=== PATIENT | female | born 1935 | race Caucasian/White ===

== ENCOUNTER 2024-03-25 08:03 | Outpatient (AMB) | payer MEDICARE, BC, SELFPAY ==
--- NOTE | 2024-03-25 08:04 | A.OFFVIS_ITS ---
Vital Signs 03/25/24 08:18 Height 5 ft 1 in Weight 168 lb BMI 31.7 Intake Visit Reasons: Left knee pain Intake Note: Funmi is a 88 year old female who presents as a new patient with left knee Pain and swelling. The patient describes her pain as sharp in nature. Her pain has gotten worse over the last year in spite of continued non operative treatments. She has had cortisone injections in the past which gave her minimal relief. She has also tried Tylenol, ice and Naprosyn which gave her minimal relief. The patient wishes to hold off on left total knee replacement surgery for as long as possible. She has done physical therapy exercises which aggravated her pain. She denies any locking or giving way. Allergies ibuprofen [From Advil] Allergy (Intermediate, Verified 03/25/24 08:26) Facial Swelling lisinopril Allergy (Intermediate, Verified 03/25/24 08:26) Unknown meloxicam Allergy (Intermediate, Verified 03/25/24 08:26) facial swelling, dizzy codine Allergy (Intermediate, Uncoded 03/25/24 08:23) Dizziness Medication List - Last Reconciled 03/26/24 by Cosmo Rosa MD citalopram 20 mg PO DAILY dorzolamide-timolol 22.3-6.8 mg/mL ophthalmic (eye) bgtfwellahl-smapyxkor-ndvpyuie 100-62.5-25 mcg (Trelegy Ellipta) 1 ea inhalation DAILY latanoprost 0.005% drps ophthalmic (eye) naproxen 375 mg PO BID [facility] Surgical History (Updated 03/25/24 @ 08:24 by Agata Underwood CMA) History of hip surgery Social History (Updated 03/25/24 @ 08:23 by Agata Underwood CMA) Patient Tobacco Use Status: Never used Tobacco Current occupational status: retired Physical Exam Vital Signs: BMI result Body Mass Index 31.7 Const Other: Well-nourished well-developed very friendly female awake alert and oriented x3 in no acute distress Extrem Other: Bilateral lower extremity examination shows good capillary refill, no skin l esions noted, normal sensation light touch Left knee examination shows a minimal effusion, palpable crepitus with range of motion, pain with range of motion, no instability Results Reviewed Results Reviewed: X-rays of the patient's left knee show moderate joint space narrowing most significant in the patellofemoral joint, no acute bony abnormalities Assessment & Plan Assessment & Plan (1) Arthritis of left knee: Code(s): M17.12 - Unilateral primary osteoarthritis, left knee Category: Medical Plan Ms. Alfonso presents with left knee pain due to degenerative joint disease. I had a lengthy discussion with the patient regarding the treatment options. She wishes to hold off on total knee replacement surgery for as long as possible. I agree with this plan. Thus, I will see whether not her insurance company will cover a viscosupplementation injection. I will see her back once the injection is available. Feel free to call me at any time should questions regarding her orthopedic management arise. Thank you very much for asking me to see this very friendly patient. I spent 20 minutes in reviewing the patient's records and imaging studies, seeing the patient and documenting in the medical record. Orders: Orders XR knee LT 3V 03/25/24 M25.562 - Pain in left knee Coding Level of Care Code New Pt Level 2 (93562) Diagnoses Arthritis of left knee M17.12
[2024-03-25 08:18] VITALS: BMI 31.7
== END 2024-03-25 08:39 | disposition home or self-care (01) ==
PROVIDERS: PCP Internal Medicine; Visit Provider Orthopaedic Surgery
DX: M17.12 Unilateral primary osteoarthritis, left knee (principal)
CPT/HCPCS: 99203

== ENCOUNTER 2024-03-25 09:38 | Outpatient (REF) | payer MEDICARE, SELFPAY ==
--- NOTE | ~2024-03-25 | XR_ITS ---
EXAMINATION: XR KNEE, LEFT CLINICAL INFORMATION: Pain in left knee. COMPARISON: None available. TECHNIQUE: Three views of the left knee. FINDINGS: The bones are diffusely demineralized. Extensive vascular calcifications. Small suprapatellar effusion. Qfob-pf-gtwnrkpe narrowing of the lateral compartment with small marginal osteophytes. Advanced degenerative changes in the patellofemoral compartment with asymmetric marked narrowing particularly in the lateral compartment, subchondral sclerosis, hypertrophic change and lateral subluxation. XR/XR knee LT 3V IMPRESSION: Advanced degenerative changes in the patellofemoral compartment.
== END 2024-03-25 09:39 | disposition home or self-care (01) ==
LOC: HO.HOSX 09:38
PROVIDERS: Visit Provider Orthopaedic Surgery
DX: M17.12 Unilateral primary osteoarthritis, left knee (principal)
CPT/HCPCS: 73562; 99202

== ENCOUNTER 2024-04-05 13:09 | Outpatient (AMB) | payer MEDICARE, SELFPAY ==
--- NOTE | 2024-04-05 13:13 | MHC.OFFVIS ---
Vital Signs 04/05/24 13:14 Height 5 ft 1 in Weight 168 lb BMI 31.7 Intake Visit Reasons: INJ- Left knee durolane gel injection Intake Note: Funmi is a 88 year old female who presents with Left knee pain. She describes her pain as sharp and severe in nature. She would like to hold off on surgery for as long as possible. She has tried Tylenol and anti-inflammatory medicines which gave her minimal relief. She has had cortisone injections which gave her no relief. Allergies ibuprofen [From Advil] Allergy (Intermediate, Verified 04/05/24 13:23) Facial Swelling lisinopril Allergy (Intermediate, Verified 04/05/24 13:23) Unknown meloxicam Allergy (Intermediate, Verified 04/05/24 13:23) facial swelling, dizzy codine Allergy (Intermediate, Uncoded 04/05/24 13:23) Dizziness Medication List - Last Reconciled 04/05/24 by Cosmo Rosa MD citalopram 20 mg PO DAILY dorzolamide-timolol 22.3-6.8 mg/mL ophthalmic (eye) plxupiiswjp-qxxmgtjne-rdukwiwv 100-62.5-25 mcg (Trelegy Ellipta) 1 ea inhalation DAILY latanoprost 0.005% drps ophthalmic (eye) naproxen 375 mg PO BID PFSH Surgical History History of hip surgery Social History Patient Tobacco Use Status: Never used Tobacco Current occupational status: retired Physical Exam Vital Signs: BMI result Body Mass Index 31.7 Const Other: Well-nourished well-developed very friendly female awake alert and oriented x3 in no acute distress Extrem Other: Bilateral lower extremity examination shows good capillary refill, no skin lesions noted, normal sensation light touch Left knee examination shows a minimal effusion, palpable crepitus with range of motion, pain with range of motion, no instability Office Procedures Joint Injection/Drain Joint Injection/Drain Primary Site: left knee Prep: site was prepped using aseptic technique Injected: 60 mg of (Durolane viscosupplementation) and 1% plain lidocaine Procedure: The patient tolerated the procedure well Coding 83825 - Large joint Procedure code (CPT) selection complete Results Reviewed Results Reviewed: X-rays of the patient's left knee show joint space narrowing, subchondral sclerosis, no acute bony abnormalities Assessment & Plan Assessment & Plan (1) Arthritis of left knee: Code(s): M17.12 - Unilateral primary osteoarthritis, left knee Category: Medical Plan Ms. Alfonso presents with left knee pain due to degenerative joint disease. I had a lengthy discussion with the patient regarding the treatment options. She wishes to hold off on surgery for as long as possible. I agree with this plan. The risks and benefits of a left knee Durolane viscosupplementation injection were discussed at length with the patient. The patient wished to proceed. She tolerated the injection well. She will continue with her home exercise program. She will follow up with me on an as-needed basis should her symptoms not plateau at an unacceptable level over the next few months. Feel free to call me at any time should questions regarding her orthopedic management arise. I spent 22 minutes in reviewing the patient's records and imaging studies, seeing the patient and documenting in the medical record. Orders: Orders AMB Joint Injection/Aspiration Today M17.12 - Unilateral primary osteoarthritis, left knee Coding Level of Care Code Est Pt Level 3 (03992) Diagnoses Arthritis of left knee M17.12 CPT Codes Coding - Large joint: 02966 - Large joint ([id number])
[2024-04-05 13:14] VITALS: BMI 31.7
== END 2024-04-05 13:49 | disposition home or self-care (01) ==
PROVIDERS: PCP Internal Medicine; Visit Provider Orthopaedic Surgery
DX: M17.12 Unilateral primary osteoarthritis, left knee (principal)
CPT/HCPCS: 20610; 99213

== ENCOUNTER → 2024-04-05 13:09 | Outpatient (BNVA) | payer MEDICARE, SELFPAY | PROVIDERS: PCP Internal Medicine; Visit Provider Orthopaedic Surgery | DX: M17.12 Unilateral primary osteoarthritis, left knee (principal) | CPT/HCPCS: 20610; 99212; J7318 ==